=== PATIENT | male | born 1995 | race Caucasian/White ===

== ENCOUNTER 2019-01-23 19:40 | Emergency (ER) | payer OTHER ==
[~2019-01-23] VITALS: Ht 182.9 cm; Wt 104.3 kg
[~2019-01-23 19:40] MED LIST: AMOX50SU PO; Amoxicillin500 MG PO; Augmentin 875-1 EACH PO; CODACEE120 PO; CRUTCH4 USE; DOXY100T53 PO; IBUP800 PO; Naprosyn500 MG PO; Norco 5-325 Ta1 EACH PO; PENVK500 PO; Pseudoephedrine30 MG PO; RXHYDACE PO; TOBR.3OPSO BOTHEYES; Veetids 500500 MG PO
[2019-01-23] MEDS ORDERED: Augmentin 875-1 EACH PO (21:50)
[2019-01-23] MEDS ORDERED: KETO10 PO (21:50)
== END 2019-01-23 22:05 | disposition home or self-care (01) ==
LOC: ER 19:40
DX: K08.89 Other specified disorders of teeth and supporting structures (principal)
CPT/HCPCS: 99282

== ENCOUNTER 2019-01-26 19:54 | Emergency (ER) | payer OTHER ==
[~2019-01-26] VITALS: Ht 182.9 cm; Wt 104.3 kg
[~2019-01-26 19:54] MED LIST changes: +KETO10 PO
== END 2019-01-26 21:00 | disposition home or self-care (01) ==
LOC: ER 19:54
DX: S60.450A Superficial foreign body of right index finger, initial encounter (principal); W45.8XXA Other foreign body or object entering through skin, initial encounter; Y99.0 Civilian activity done for income or pay
CPT/HCPCS: 10120; 99283-25

== ENCOUNTER 2024-06-17 15:54 | Emergency (ER) | payer OTHER ==
[~2024-06-17] VITALS: Ht 182.9 cm; Wt 99.8 kg
[2024-06-17 16:20] VITALS: BP 157/91
[2024-06-17] MEDS ORDERED: Tetracaine HCl/Pf 0.5% Opth Soln 4 ml RIGHTEYE ONE (16:35)
[2024-06-17] MEDS ORDERED: Fluorescein Sod 1MG Opth Strips RIGHTEYE ONE (16:35)
[2024-06-17] MEDS ORDERED: Erythromycin 0.5% Opth Oint 1 gm RIGHTEYE ONE (17:00)
== END 2024-06-17 17:09 | disposition home or self-care (01) ==
LOC: ER 15:54
DX: S05.01XA Injury of conjunctiva and corneal abrasion without foreign body, right eye, initial encounter (principal); W22.8XXA Striking against or struck by other objects, initial encounter
CPT/HCPCS: 99282; A9270

== ENCOUNTER 2024-09-13 13:26 | Emergency (ER) | payer SELFPAY ==
[~2024-09-13] VITALS: Ht 188 cm; Wt 95.2 kg
[2024-09-13 13:37] VITALS: BP 166/92
[2024-09-13] MEDS ORDERED: Peg 400/Hypromellose/Glycerin 15 DROP/ML BTL BOTHEYES ONE (15:25)
[2024-09-13] MEDS ORDERED: Fluorescein Sod 1MG Opth Strips BOTHEYES ONE (15:25)
[2024-09-13] MEDS ORDERED: Tetracaine HCl/Pf 0.5% Opth Soln 4 ml BOTHEYES ONE (15:25)
[2024-09-13] MEDS ORDERED: Dextran/Hypromellose/Glycerin 15 DROP/ML BTL BOTHEYES ONE (15:30)
== END 2024-09-13 15:57 | disposition home or self-care (01) ==
LOC: ER 13:26
DX: T65.91XA Toxic effect of unspecified substance, accidental (unintentional), initial encounter (principal); H53.143 Visual discomfort, bilateral
CPT/HCPCS: 99283; A9270

== ENCOUNTER 2025-04-26 16:14 | Emergency (ER) | payer SELFPAY ==
[~2025-04-26] VITALS: Ht 182.9 cm; Wt 90.7 kg
[2025-04-26 16:35] VITALS: BP 158/89
[2025-04-26] MEDS ORDERED: AMOCLA875 PO (16:51)
== END 2025-04-26 16:55 | disposition home or self-care (01) ==
LOC: ER 16:14
DX: K04.7 Periapical abscess without sinus (principal)
CPT/HCPCS: 99282